=== PATIENT | male | born 1980 | race Caucasian/White ===

== ENCOUNTER 2020-12-11 05:38 | Day surgery (SDC) | payer BC ==
[2020-12-05 16:40] LABS: BASOPHILS % (AUTO) 0.4 % (0-1); EOSINOPHILS # (AUTO) 0.2 X10'3 (0-0.9); EOSINOPHILS % (AUTO) 2.4 % (0-6); LYMPHOCYTES # (AUTO) 3.7 X10'3 (1.1-4.8); LYMPHOCYTES % (AUTO) 40.7 % (21-51); MEAN CORPUSCULAR HEMOGLOBIN 28.9 PG (27.0-31.0); MEAN CORPUSCULAR HGB CONC 33.9 g/dL (33.0-36.5); MEAN CORPUSCULAR VOLUME 85.1 FL (78-98); MEAN PLATELET VOLUME 9.1 FL (7.4-10.4); MONOCYTES # (AUTO) 0.8 X10'3 (0-0.9); MONOCYTES % (AUTO) 8.4 % (2-12); NEUTROPHILS # (AUTO) 4.4 X10'3 (1.8-7.7); NEUTROPHILS % (AUTO) 48.1 % (42-75); PRE OP HEMATOCRIT 45.5 % (42.0-52.0); PRE OP HEMOGLOBIN 15.4 g/dL (14.0-17.9); PRE OP PLATELET COUNT 341 X10'3 (140-440); RED BLOOD COUNT 5.34 X10'6 (4.70-6.10); RED CELL DISTRIBUTION WIDTH 13.4 % (11.5-14.5)
[2020-12-05 16:59] LABS: ALBUMIN/GLOBULIN RATIO 1.1 (1.1-1.5); ALKALINE PHOSPHATASE 83 IU/L (46-116); BLOOD UREA NITROGEN 16 MG/DL (7-18); BUN/CREATININE RATIO 19.5 (5.4-32.0); CALCIUM 8.8 MG/DL (8.5-10.1); CHLORIDE 107 MMOL/L (99-107); CREATININE 0.82 MG/DL (0.60-1.10); PRE OP ALT 34 U/L (30-65); PRE OP ANION GAP 8 (8-16); PRE OP AST 15 U/L (10-37); PRE OP BILIRUB, TOTAL 0.5 MG/DL (0.0-1.0); PRE OP GLUCOSE 97 MG/DL (70-104); PRE OP POTASSIUM 4.1 MMOL/L (3.4-5.1); PRE OP SODIUM 145 MMOL/L (135-145); TOTAL CARBON DIOXIDE 29.6 MMOL/L (24-32); TOTAL PROTEIN 7.7 G/DL (6.4-8.2); eGFR > 90 ML/MIN
[2020-12-11] VITALS (8 sets, daily range): BP systolic 133–154; BP diastolic 85–101
[~2020-12-11] VITALS: Ht 185.4 cm; Wt 124.0 kg
[~2020-12-11 05:38] MED LIST: ADAL40PE SUBCUT; CIPROFLOXACIN 400MG/200ML premix IV ONE; IBUP-1986 PO; famotidine 20mg tablet PO ONE; ringers solution, lacted 1,000 ML IV SCH
[2020-12-11] MEDS ORDERED: BUPIVAcaine 0.5% inj/PF 30 ML ONE (06:51)
[2020-12-11] MEDS ORDERED: bacitracin 15gm ointment TP ONE (06:51)
[2020-12-11] MEDS ORDERED: sevoflurane 250ml liquid IH ONE (07:15)
[2020-12-11] MEDS ORDERED: fentaNYL/PF 50MCG/1 ML 2ML syringe ONE (07:18)
[2020-12-11] MEDS ORDERED: midazolam 1 mg/ML 2ml injection ONE (07:18)
[2020-12-11] MEDS ORDERED: LIDOcaine 2% (20mg/ml) 5ml vial ONE (07:22)
[2020-12-11] MEDS ORDERED: propofol inj 20 ML IV ONE (07:22)
[2020-12-11] MEDS ORDERED: ondansetron/PF 4mg/2ml inj ONE (07:25)
[2020-12-11] MEDS ORDERED: dexamethasone sod phosphate 4mg/ml inj. ONE (07:25)
[2020-12-11] MEDS ORDERED: acetaminophen 1,000mg/100ml IV 100 ML IV ONE (07:35)
[2020-12-11] MEDS ORDERED: BUPIVAcaine 0.5% inj/PF 30 ml vial IJ ONE (07:38)
[2020-12-11] MEDS ORDERED: morphine 2 MG/ML inj. syringe IV PRN (07:55)
[2020-12-11] MEDS ORDERED: ringers solution, lacted 1,000 ML IV SCH (07:55)
[2020-12-11] MEDS ORDERED: meperidine/PF 25mg/ml syringe IV PRN ×3 (07:55)
[2020-12-11] MEDS ORDERED: ondansetron/PF 4mg/2ml inj IV PRN (07:55)
[2020-12-11] MEDS ORDERED: proCHLORperazine 10 MG/2 ml inj IV PRN (07:55)
[2020-12-11] MEDS ORDERED: morphine 4 MG/ML inj SYRINge IV PRN (07:55)
--- NOTE | 2020-12-11 08:30 | NUR ---
Received from OR via BED , accompanied by Anesthesiologist and report given by Anesthesiolgist. PATIENT WAKING UP, NO S/S OF PAIN, V/S WNL, SCD ON, 20G TO LUE, MESH PANTIES 4X4 TO SURGICAL SCROTAL SIGHTS
--- NOTE | 2020-12-11 09:30 | NUR ---
WAKING A&OX4, DENIES PAIN, V/S WNL, SCD ON, 20G TO LUE D/C, MESH PANTIES 4X4 TO SURGICAL SCROTAL SIGHTS. PATIENT VERBALIZED UNDERSTANDING OF D/C ORDERS AND SCRIPT GIVEN FOR PAIN AND KEFLEX CALLED INTO [facility] [place]. PATIENT D/C HOME WITH AND ALL BELONGINGS.
== END 2020-12-11 09:30 | disposition home or self-care (01) ==
LOC: PAS 05:38
PROVIDERS: ATTEND Urology
DX: Z30.2 Encounter for sterilization (principal); Z20.822 Contact with and (suspected) exposure to COVID-19; G47.30 Sleep apnea, unspecified; J45.909 Unspecified asthma, uncomplicated; E66.9 Obesity, unspecified; Z68.35 Body mass index [BMI] 35.0-35.9, adult; M06.9 Rheumatoid arthritis, unspecified; M19.90 Unspecified osteoarthritis, unspecified site; I10 Essential (primary) hypertension; Z87.891 Personal history of nicotine dependence; Z88.0 Allergy status to penicillin; Z88.1 Allergy status to other antibiotic agents; Z98.890 Other specified postprocedural states; Z79.899 Other long term (current) drug therapy; Z80.0 Family history of malignant neoplasm of digestive organs
CPT/HCPCS: 36415; 55250; 80053; 82948; 85025; 93005; J0131; J0744; J1100; J2001; J2175; J2250; J2405; J2704; J3010; J7120; U0003; A4215; A4618; A6446; A7000